=== PATIENT | male | born 1995 | race Hispanic/Latino ===

== ENCOUNTER 2021-01-24 16:09 | Emergency (ER) | payer SELFPAY ==
[~2021-01-24] VITALS: Ht 177.8 cm; Wt 107.5 kg
[2021-01-24] MEDS ORDERED: CEPHALEXIN500 MG PO (16:57)
== END 2021-01-24 17:00 | disposition home or self-care (01) ==
LOC: FSED 16:18
DX: L03.031 Cellulitis of right toe (principal); L60.0 Ingrowing nail
CPT/HCPCS: 99283

== ENCOUNTER 2021-03-06 18:44 | Emergency (ER) | payer SELFPAY ==
[~2021-03-06] VITALS: Ht 177.8 cm; Wt 104.3 kg
[~2021-03-06 18:44] MED LIST: CEPHALEXIN500 MG PO
[2021-03-06] MEDS ORDERED: TRAMADOL HCL 50 MG TAB PO ONE (19:00)
[2021-03-06] MEDS ORDERED: ACETAMINOPHEN-1 EAC3 PO (19:42)
[2021-03-06 20:18] VITALS: BP 148/98
== END 2021-03-06 20:18 | disposition home or self-care (01) ==
LOC: FSED 19:05
DX: S93.402A Sprain of unspecified ligament of left ankle, initial encounter (principal); X50.1XXA Overexertion from prolonged static or awkward postures, initial encounter; E11.9 Type 2 diabetes mellitus without complications
CPT/HCPCS: 99283

== ENCOUNTER 2025-01-02 10:36 | Emergency (ER) | payer OTHER ==
[~2025-01-02] VITALS: Ht 177.8 cm; Wt 108.0 kg
[~2025-01-02 10:36] MED LIST changes: +ACETAMINOPHEN-1 EAC3 PO
[2025-01-02 10:40] VITALS: PULSE 59; RESP 18; TEMP 98.4
[2025-01-02] MEDS: IBUPROFEN 600 MG TAB PO STA (11:35)
[2025-01-02 13:45] VITALS: BP 139/88; PULSE 54; RESP 20; TEMP 98.5; O2SAT 99
== END 2025-01-02 13:30 | disposition home or self-care (01) ==
LOC: FSED 10:58
DX: M25.562 Pain in left knee (principal); S83.8X2A Sprain of other specified parts of left knee, initial encounter; X50.1XXA Overexertion from prolonged static or awkward postures, initial encounter; Y92.89 Other specified places as the place of occurrence of the external cause; E11.9 Type 2 diabetes mellitus without complications; F17.210 Nicotine dependence, cigarettes, uncomplicated
CPT/HCPCS: 99284